=== PATIENT | female | born 1975 | race African-American/Black ===

== ENCOUNTER 2020-11-16 07:28 | Emergency (ER) | payer OTHER ==
[~2020-11-16] VITALS: Ht 172.7 cm; Wt 104.2 kg
[2020-11-16] MEDS: PERTUSS(ACELL),DIPH,TET VAC/PF 0.5 ML SYRINGE IM. ONE ×2 (07:55→08:13)
[2020-11-16] MEDS ORDERED: TraMADol HCL 50 MG TABLET PO ONE (08:15)
[2020-11-16 08:34] VITALS: BP 148/75
== END 2020-11-16 08:48 | disposition home or self-care (01) ==
LOC: EMS 07:37
DX: J44.9 Chronic obstructive pulmonary disease, unspecified (principal); I50.9 Heart failure, unspecified; F17.200 Nicotine dependence, unspecified, uncomplicated
CPT/HCPCS: 71045; 90715; 99283